=== PATIENT | female | born 1990 ===

== ENCOUNTER 2021-11-15 09:00 | Outpatient (CLI) | payer OTHER | END 2021-11-15 11:09 | disposition home or self-care (01) | LOC: PRENATAL 09:00 | PROVIDERS: ATTEND Obstetrics & Gynecology Maternal & Fetal Medicine | DX: O36.80X0 Pregnancy with inconclusive fetal viability, not applicable or unspecified (principal); Z36.0 Encounter for antenatal screening for chromosomal anomalies; Z3A.14 14 weeks gestation of pregnancy ==